=== PATIENT | female | born 1995 ===

== ENCOUNTER 2017-10-09 10:18 | Emergency (ER) | payer OTHER ==
--- NOTE | 2017-10-09 10:32 | ED PDOC ---
Arrival/HPI - General Chief Complaint: Abdominal Pain Time Seen by Provider: 10/09/17 10:24 Historian: Patient - History of Present Illness Narrative History of Present Illness (Text): 10/09/17 10:35 A 21 year old female, with no significant past medical history, presents to the emergency department complaining of abdominal cramping since last night. Patient reports when eating, pain sharpens. Notes also experiencing nausea and vomiting. Patient mentions having terminated (with pill) on 2016. Patient denies any diarrhea or any other complaints at this time. Denies of any past surgical history. No PMD Time/Duration: Other (last night) Symptom Onset: Sudden Symptom Course: Unchanged Past Medical History - Provider Review Nursing Documentation Reviewed: Yes - Infectious Disease Hx of Infectious Diseases: None - Psychiatric Hx Substance Use: No Family/Social History - Physician Review Nursing Documentation Reviewed: Yes Family/Social History: No Known Family HX Smoking Status: Never Smoked Hx Alcohol Use: Yes Frequency of alcohol use: Socially Hx Substance Use: No Allergies/Home Meds Allergies/Adverse Reactions: Allergies No Known Allergies Allergy (Verified 10/09/17 10:29) Review of Systems - Physician Review All systems were reviewed & negative as marked: Yes - Review of Systems Constitutional: absent: Fevers, Night Sweats Gastrointestinal: Abdominal Pain (epigastric cramping), Nausea, Vomiting. absent: Diarrhea Physical Exam Vital Signs Temp Pulse Resp BP Pulse Ox 10/09/17 14:40 68 16 112/64 100 10/09/17 13:26 69 18 118/74 99 10/09/17 11:25 73 18 121/86 99 10/09/17 10:42 97.8 F 78 17 119/81 99 - Systems Exam Head: Present: Atraumatic, Normocephalic Pupils: Present: PERRL Extroacular Muscles: Present: EOMI Conjunctiva: Present: Normal Mouth: Present: Moist Mucous Membranes Neck: Present: Normal Range of Motion Respiratory/Chest: Present: Clear to Auscultation, Good Air Exchange. No: Respiratory Distress, Accessory Muscle Use Cardiovascular: Present: Regular Rate and Rhythm, Normal S1, S2. No: Murmurs Abdomen: Present: Tenderness (epigastric tenderness) Back: Present: Normal Inspection Upper Extremity: Present: Normal Inspection. No: Cyanosis, Edema Lower Extremity: Present: Normal Inspection. No: Edema Neurological: Present: GCS=15, CN II-XII Intact, Speech Normal Skin: Present: Warm, Dry, Normal Color. No: Rashes Psychiatric: Present: Alert, Oriented x 3, Normal Insight, Normal Concentration Medical Decision Making ED Course and Treatment: 10/09/17 10:38 Impression: 21 year old female with epigastric cramping. Physical exam shows epigastric tenderness. bedside us shows no e/o of cholecystitis. Plan: -- Abd/Pelvis CT -- Transvaginal Ultrasound -- Labs -- Urinalysis -- Zofran -- Protonix -- IV Fluids -- Urine Test -- Reassess and disposition Progress Notes: 10/09/2017 12:57 Abd/Pelvis CT FINDINGS: LOWER THORAX: Unremarkable. LIVER: Unremarkable. No gross lesion or ductal dilatation. GALLBLADDER AND BILE DUCTS: Unremarkable. PANCREAS: Unremarkable. No gross lesion or ductal dilatation. SPLEEN: Unremarkable. ADRENALS: Unremarkable. No mass. KIDNEYS AND URETERS: Unremarkable. No hydronephrosis. No solid mass. VASCULATURE: Unremarkable. No aortic aneurysm. BOWEL: There is mural thickening and edema in the stomach consistent with gastritis. This is best appreciated on coronal image 13 series 602 and axial image 60. APPENDIX: Normal appendix. PERITONEUM: Unremarkable. No free fluid. No free air. LYMPH NODES: Unremarkable. No enlarged lymph nodes. BLADDER: Unremarkable. REPRODUCTIVE: Multiple ovarian cysts are seen. There is a small amount of fluid in the cul-de -sac BONES: No acute fracture. OTHER FINDINGS: None. IMPRESSION: Mural thickening and edema in the stomach consistent with gastritis. Multiple ovarian cysts with a small amount of fluid in the cul-de-sac Dictator: Loi Simeon MD 10/09/2017 13:44 Transvaginal Ultrasound FINDINGS: UTERUS: Measures 8.3 x 3.9 x 4.8 cm. Normal in size. Retroverted to retroflexed No fibroid or other mass lesion seen. ENDOMETRIUM: Measures 9 mm in diameter. Unremarkable. No significant appearing retained products of conception. CERVIX: No cervical abnormality identified. RIGHT OVARY: Measures 3.9 x 2.4 x 4.1 cm. No solid mass. Normal flow. Multiple follicular appearing cyst: The 2 largest are 12 x 7 x 12 mm and 10 x 7 x 10 mm LEFT OVARY: Measures 3.5 x 2.3 x 3.3 cm. No solid mass. Normal flow. Two left ovarian follicular appearing cysts: The 2 largest are 11 x 6 x 10 mm and 11 x 9 x 12 mm FREE FLUID: Small amount of free fluid in the cul-de-sac noted OTHER FINDINGS: None. IMPRESSION: Status post 09/14/2017. No significant appearing retained products of conception. No focus echogenic larger than 3 mm in size seen. Bilateral ovarian follicles. Small amount of free fluid in the cul-de-sac Dictator: Karissa Marquez MD 10/09/17 15:06 pt reassesseD: intialy with persistent pain, however pain resolved after toradol now asking for dc. return precautions advisd. - Lab Interpretations Lab Results: 10/09/17 10:50 10/09/17 10:50 Lab Results 10/09/17 10:50: Sodium 140, Potassium 4.2, Chloride 102, Carbon Dioxide 26, Anion Gap 15, BUN 14, Creatinine 0.8, Est GFR ( Amer) > 60, Est GFR (Non- Af Amer) > 60, Random Glucose 104, Calcium 9.6, Total Bilirubin 0.7, AST 19, ALT 23, Alkaline Phosphatase 63, Total Protein 8.4 H, Albumin 4.7, Globulin 3.7 , Albumin/Globulin Ratio 1.3, Lipase 60 10/09/17 10:50: PT 12.5, INR 1.13 H, APTT 27.7 10/09/17 10:50: WBC 10.6, RBC 4.19, Hgb 13.1, Hct 37.5, MCV 89.5, MCH 31.3, MCHC 34.9, RDW 12.4, Plt Count 337, MPV 9.3, Gran % 80.5 H, Lymph % (Auto) 16.1 L, [place] % (Auto) 2.9, Eos % (Auto) 0.4 L, Baso % (Auto) 0.1, Gran # 8.51 H, Lymph # 1.7, [place] # 0.3, Eos # 0.0, Baso # 0.01 10/09/17 10:49: Urine Color Yellow, Urine Appearance Clear, Urine pH 6.0, Ur Specific [place] 1.015, Urine Protein Negative, Urine Glucose (UA) Negative, Urine Ketones Negative, Urine Blood Small H, Urine Nitrate Negative, Urine Bilirubin Negative, Urine Urobilinogen 0.2, Ur Leukocyte Esterase Negative, Urine RBC 1 - 3, Urine WBC 0 - 2, Ur Epithelial Cells 1 - 3, Urine Bacteria Occ , Urine HCG, Qual Negative I have reviewed the lab results: Yes - RAD Interpretation Radiology Orders: 10/09/17 11:31 ABD & PELVIS IV CONTRAST ONLY [CT] Stat 10/09/17 13:05 TRANSVAGINAL [US] Stat - Medication Orders Current Medication Orders: Discontinued Medications Al Hydrox/Mg Hydrox/Simethicone (Maalox Plus 30 Ml) 30 ml PO STAT STA Stop: 10/09/17 11:32 Last Admin: 10/09/17 11:55 Dose: 30 ml Sodium Chloride (Sodium Chloride 0.9%) 1,000 mls @ 1,000 mls/hr IV .Q1H STA Stop: 10/09/17 11:37 Last Admin: 10/09/17 10:58 Dose: 1,000 mls/hr eMAR Start Stop Document 10/09/17 10:58 CNR (Rec: 10/09/17 10:58 CNR [id number]) Intravenous Solution Start Date 10/09/17 Start Time 10:58 Ketorolac Tromethamine (Toradol) 30 mg IVP STAT STA Stop: 10/09/17 13:52 Last Admin: 10/09/17 14:03 Dose: 30 mg MAR Pain Assessment Document 10/09/17 14:03 HI (Rec: 10/09/17 14:03 [place] [facility] [id number][place] Pain Reassessment Is this a pain reassessment? Yes Sleep Is patient sleeping during reassessment? No Presence of Pain Presence of Pain Yes Location Pain Location Body Site Abdomen IVP Administration Document 10/09/17 14:03 HI (Rec: 10/09/17 14:03 [place] [facility] [id number][place] Charges for Administration # of IVP Administrations 1 Ondansetron HCl (Zofran Inj) 4 mg IVP STAT STA Stop: 10/09/17 10:40 Last Admin: 10/09/17 10:58 Dose: 4 mg IVP Administration Document 10/09/17 10:58 CNR (Rec: 10/09/17 10:58 CNR [id number]) Charges for Administration # of IVP Administrations 1 Pantoprazole Sodium (Protonix Inj) 40 mg IVP STAT STA Stop: 10/09/17 10:39 Last Admin: 10/09/17 10:58 Dose: 40 mg IVP Administration Document 10/09/17 10:58 CNR (Rec: 10/09/17 10:58 CNR [id number]) Charges for Administration # of IVP Administrations 1 - Scribe Statement The provider has reviewed the documentation as recorded by the Vishalibnaila Garcia Provider Scribe Attestation: All medical record entries made by the Scribe were at my direction and personally dictated by me. I have reviewed the chart and agree that the record accurately reflects my personal performance of the history, physical exam, medical decision making, and the department course for this patient. I have also personally directed, reviewed, and agree with the discharge instructions and disposition. Disposition/Present on Arrival - Present on Arrival Any Indicators Present on Arrival: No History of DVT/PE: No History of Uncontrolled Diabetes: No Urinary Catheter: No History of Decub. Ulcer: No History Surgical Site Infection Following: None - Disposition Have Diagnosis and Disposition been Completed?: Yes Diagnosis: Abdominal pain, Ovarian cyst Disposition: HOME/ ROUTINE Disposition Time: 03:00 Condition: STABLE Discharge Instructions (ExitCare): Ovarian Cyst (ED), Acute Abdominal Pain (ED) Additional Instructions: please follow up with your doctor. return to emergency room with worsening symptoms or concerns. pleas see specialist. Prescriptions: Famotidine [Pepcid] 20 mg PO DAILY #20 tab Referrals: Ottoniel Hunter, [Primary Care Provider] - Follow up with primary Fco Ortiz MD [Staff Provider] - Follow up with primary Forms: [employer] (Filipino)
[2017-10-09] MEDS ORDERED: Sodium Chloride 0.9% 1,000 ML IV STA (10:38)
[2017-10-09 10:46] VITALS: TEMP 97.8
[2017-10-09 10:58] LABS: URINE BILIRUBIN NEGATIVE (NEGATIVE); URINE BLOOD SMALL (NEGATIVE); URINE GLUCOSE (UA) NEGATIVE (NEGATIVE); URINE KETONE NEGATIVE (NEGATIVE); URINE LEUKOCYTE ESTERASE NEGATIVE Leu/uL (NEGATIVE); URINE PROTEIN NEGATIVE mg/dL (<30 mg/dL); URINE UROBILINOGEN 0.2 E.U./dL (<1 E.U./dL)
[2017-10-09 10:59] LABS: URINE APPEARANCE CLEAR (CLEAR); URINE COLOR YELLOW (YELLOW)
[2017-10-09 11:04] LABS: BASO # 0.01 K/mm3 (0.0-2.0); BASO % 0.1 % (0.0-3.0); EOS % 0.4 % (1.5-5.0); GRAN # 8.51 (1.4-6.5); GRAN % 80.5 % (50.0-68.0); HEMATOCRIT 37.5 % (36.0-48.0); LYMPH # 1.7 (1.2-3.4); LYMPH % 16.1 % (22.0-35.0); MEAN CELL VOLUME 89.5 fl (80.0-105.0); MEAN CORPUSCULAR HEMOGLOBIN 31.3 pg (25.0-35.0); MEAN CORPUSCULAR HGB CONC 34.9 g/dl (31.0-37.0); MEAN PLATELET VOLUME 9.3 fl (7.0-11.0); MONO # 0.3 (0.1-0.6); MONO % 2.9 % (1.0-6.0); RED CELL DISTRIBUTION WIDTH 12.4 % (11.5-14.5); WHITE BLOOD COUNT 10.6 10^3/ul (4.5-11.0)
[2017-10-09 11:10] LABS: INR 1.13 (0.93-1.08); PARTIAL THROMBOPLASTIN TIME 27.7 Seconds (25.1-36.5)
[2017-10-09 11:17] LABS: URINE BACTERIA OCC (NEG); URINE WBC 0 - 2 /hpf (0-6)
[2017-10-09 11:24] LABS: ALB/GLOB RATIO 1.3 (1.1-1.8); ALKALINE PHOSPHATASE 63 U/L (38-126); ALT/SGPT 23 U/L (7-56); AST/SGOT 19 U/L (14-36); BILIRUBIN,TOTAL 0.7 mg/dL (0.2-1.3); BLOOD UREA NITROGEN 14 mg/dL (7-21); CALCIUM 9.6 mg/dL (8.4-10.5); CARBON DIOXIDE 26 mmol/L (21-33); CHLORIDE 102 mmol/L (98-107); GFR AFRICAN-AMERICAN > 60; GLUCOSE,RANDOM 104 mg/dL (70-110); LIPASE 60 U/L (23-300); POTASSIUM 4.2 mmol/L (3.6-5.0); SODIUM 140 mmol/L (132-148); TOTAL PROTEIN 8.4 g/dL (5.8-8.3)
[2017-10-09] MEDS ORDERED: Alum-Mag Hydrox-Simethicone Susp (30 mL) PO STA (11:31)
[2017-10-09] MEDS ORDERED: Iohexol 350 MG/100 ML VIAL ONE (11:36)
--- NOTE | 2017-10-09 12:59 | CT ---
PROCEDURE: CT Abdomen and Pelvis with contrast HISTORY: epigastric and right sided pain COMPARISON: None. TECHNIQUE: Contrast dose: 100 cc of Omni 350 Radiation dose: Total exam DLP = 314 mGy-cm. This CT exam was performed using one or more of the following dose reduction techniques: Automated exposure control, adjustment of the mA and/or kV according to patient size, and/or use of iterative reconstruction technique. FINDINGS: LOWER THORAX: Unremarkable. LIVER: Unremarkable. No gross lesion or ductal dilatation. GALLBLADDER AND BILE DUCTS: Unremarkable. PANCREAS: Unremarkable. No gross lesion or ductal dilatation. SPLEEN: Unremarkable. ADRENALS: Unremarkable. No mass. KIDNEYS AND URETERS: Unremarkable. No hydronephrosis. No solid mass. VASCULATURE: Unremarkable. No aortic aneurysm. BOWEL: There is mural thickening and edema in the stomach consistent with gastritis. This is best appreciated on coronal image 13 series 602 and axial image 60. APPENDIX: Normal appendix. PERITONEUM: Unremarkable. No free fluid. No free air. LYMPH NODES: Unremarkable. No enlarged lymph nodes. BLADDER: Unremarkable. REPRODUCTIVE: Multiple ovarian cysts are seen. There is a small amount of fluid in the cul-de-sac BONES: No acute fracture. OTHER FINDINGS: None. IMPRESSION: Mural thickening and edema in the stomach consistent with gastritis. Multiple ovarian cysts with a small amount of fluid in the cul-de-sac
--- NOTE | 2017-10-09 13:45 | US ---
HISTORY: abd pain h/o of ovarian cyst patient had on 09/14/2017 COMPARISON: None available. TECHNIQUE: Transvaginal technique utilized. LMP 07/30/2017 FINDINGS: UTERUS: Measures 8.3 x 3.9 x 4.8 cm. Normal in size. Retroverted to retroflexed No fibroid or other mass lesion seen. ENDOMETRIUM: Measures 9 mm in diameter. Unremarkable. No significant appearing retained products of conception. CERVIX: No cervical abnormality identified. RIGHT OVARY: Measures 3.9 x 2.4 x 4.1 cm. No solid mass. Normal flow. Multiple follicular appearing cyst: The 2 largest are 12 x 7 x 12 mm and 10 x 7 x 10 mm LEFT OVARY: Measures 3.5 x 2.3 x 3.3 cm. No solid mass. Normal flow. Two left ovarian follicular appearing cysts: The 2 largest are 11 x 6 x 10 mm and 11 x 9 x 12 mm FREE FLUID: Small amount of free fluid in the cul-de-sac noted OTHER FINDINGS: None. IMPRESSION: Status post 09/14/2017. No significant appearing retained products of conception. No focus echogenic larger than 3 mm in size seen. Bilateral ovarian follicles . Small amount of free fluid in the cul-de-sac
[2017-10-09 14:42] VITALS: BP 112/64; PULSE 68; RESP 16; O2SAT 100
== END 2017-10-09 14:49 | disposition home or self-care (01) ==
LOC: ED 10:18
DX: N83.209 Unspecified ovarian cyst, unspecified side (principal); R10.9 Unspecified abdominal pain
CPT/HCPCS: 74177; 76830; 80053; 81001; 83690; 84703; 85025; 85610; 85730; 96374; 96375; 99284; C9113; J1885; J2405; J7040; Q9967